=== PATIENT | male | born 1935 | race Caucasian/White ===

== ENCOUNTER 2018-10-15 14:18 | Inpatient (IN) | payer MEDICARE, OTHER, MEDICAID ==
[~2018-10-15] VITALS: Ht 177.8 cm; Wt 73.5 kg
[2018-10-15 14:25] VITALS: BP 126/66
--- NOTE | 2018-10-15 14:25 | NUR ---
ED Nurse Note: pt was brought in by ambulance from home c/o genaral body weakness started 2 weeks ago. pt felt so sleepy for the last 2 week. pt is also complaining of low blood pressure, bp upon ed arrival is 128/71. pt noted to have slow hr 47. ermd made aware. pt denies any pain, no headache. will continue to monitor
--- NOTE | 2018-10-15 14:27 | NUR ---
ED Nurse Note: iv stablished on pt right ac blood drawn and sent to lab. ivf started. will continue to monitor.
[2018-10-15] MEDS ORDERED: Sodium Chloride 2,200 ML IVLG ONE (14:30)
--- NOTE | 2018-10-15 14:30 | NUR ---
ED Nurse Note: proof technician helper on bedside.
--- NOTE | 2018-10-15 14:50 | Emergency Room Report ---
History of Present Illness General Chief Complaint: Generalized Weakness Source: Patient Present Illness HPI This patient states that this morning his roommate took his blood pressure and it was low. He does not recall the number. He has no other complaints. He denies chest pain or shortness of breath. He denies abdominal pain. He denies recent illness. He denies fever or chills. He denies lightheadedness. Denies cough or congestion. He denies headache or neck pain. He has no other complaints. Allergies: Coded Allergies: No Known Allergies (Unverified , 10/15/18) Patient History Past Medical History: see triage record, HTN, CAD, CVA/TIA Social History: Denies: smoking, alcohol use, drug use Reviewed Nursing Documentation: PMH: Agreed; PSxH: Agreed Nursing Documentation-PMH Past Medical History: No History, Except For Hx Hypertension: Yes Review of Systems All Other Systems: negative except mentioned in HPI Physical Exam Vital Signs Date Time Temp Pulse Resp B/P (MAP) Pulse Ox O2 Delivery O2 Flow Rate FiO2 10/15/18 14:16 98.1 46 16 126/66 (86) 99 Room Air Sp02 EP Interpretation: reviewed, normal General Appearance: no apparent distress, alert, GCS 15, non-toxic Head: normocephalic, atraumatic Eyes: bilateral eye normal inspection, bilateral eye PERRL ENT: hearing grossly normal, normal pharynx, no angioedema, normal voice Neck: full range of motion, supple/symm/no masses Respiratory: chest non-tender, lungs clear, normal breath sounds, no respiratory distress, no retraction, no accessory muscle use, speaking full sentences Cardiovascular #1: no edema, bradycardia Gastrointestinal: normal bowel sounds, non tender, soft, non-distended, no guarding, no rebound Rectal: deferred Musculoskeletal: back normal, gait/station normal, normal range of motion, non- tender Neurologic: alert, oriented x3, responsive, sensory intact, speech normal, grossly normal Psychiatric: judgement/insight normal, memory normal, mood/affect normal, no suicidal/homicidal ideation Medical Decision Making Diagnostic Impression: Primary Impression: Aspiration into airway ER Course This elderly male had initially presented for low blood pressure and generalized weakness. However, during his ED course he was eating a sandwich and aspirated into his airway. He had stridor that developed. He underwent deep suctioning by respiratory therapy and induced sputum to dislodge. Initially thought I may have to intubate this patient, however, he recovered. There was no evidence of a foreign body identified on CT of the neck and chest x -ray showed no new findings. As a precaution, this patient was admitted to the ICU stepdown to monitor his airway. He also may need to undergo a swallow study as he has a history of CVA and had an observed aspiration here in the emergency department. He is admitted for further evaluation and treatment. Laboratory Tests Test 10/15/18 14:25 10/15/18 15:40 White Blood Count 6.2 K/UL (4.8-10.8) Red Blood Count 4.18 M/UL (4.70-6.10) L Hemoglobin 11.8 G/DL (14.2-18.0) L Hematocrit 35.5 % (42.0-52.0) L Mean Corpuscular Volume 85 FL (80-99) Mean Corpuscular Hemoglobin 28.2 PG (27.0-31.0) Mean Corpuscular Hemoglobin Concent 33.2 G/DL (32.0-36.0) Red Cell Distribution Width 12.3 % (11.6-14.8) Platelet Count 161 K/UL (150-450) Mean Platelet Volume 6.1 FL (6.5-10.1) L Neutrophils (%) (Auto) 66.3 % (45.0-75.0) Lymphocytes (%) (Auto) 22.8 % (20.0-45.0) Monocytes (%) (Auto) 6.9 % (1.0-10.0) Eosinophils (%) (Auto) 3.4 % (0.0-3.0) H Basophils (%) (Auto) 0.6 % (0.0-2.0) Sodium Level 140 MMOL/L (136-145) Potassium Level 4.2 MMOL/L (3.5-5.1) Chloride Level 107 MMOL/L (98-107) Carbon Dioxide Level 30 MMOL/L (21-32) Anion Gap 3 mmol/L (5-15) L Blood Urea Nitrogen 24 mg/dL (7-18) H Creatinine 1.3 MG/DL (0.55-1.30) Estimate Glomerular Filtration Rate mL/min (>60) Glucose Level 83 MG/DL (74-106) Lactic Acid Level 0.80 mmol/L (0.4-2.0) Calcium Level 9.0 MG/DL (8.5-10.1) Total Bilirubin 0.6 MG/DL (0.2-1.0) Aspartate Amino Transferase (AST) 17 U/L (15-37) Alanine Aminotransferase (ALT) 13 U/L (12-78) Alkaline Phosphatase 80 U/L (46-116) Total Creatine Kinase 70 U/L (26-308) Creatine Kinase MB 0.6 NG/ML (0.0-3.6) Creatine Kinase MB Relative Index 0.8 Troponin I 0.005 ng/mL (0.000-0.056) Total Protein 6.4 G/DL (6.4-8.2) Albumin 3.8 G/DL (3.4-5.0) Globulin 2.6 g/dL Albumin/Globulin Ratio 1.5 (1.0-2.7) Urine Color Pale yellow Urine Appearance Clear Urine pH 5 (4.5-8.0) Urine Specific [place] 1.015 (1.005-1.035) Urine Protein Negative (NEGATIVE) Urine Glucose (UA) Negative (NEGATIVE) Urine Ketones Negative (NEGATIVE) Urine Blood Negative (NEGATIVE) Urine Nitrite Negative (NEGATIVE) Urine Bilirubin Negative (NEGATIVE) Urine Urobilinogen Normal MG/DL (0.0-1.0) Urine Leukocyte Esterase 1+ (NEGATIVE) H Urine RBC 0-2 /HPF (0 - 0) H Urine WBC 2-4 /HPF (0 - 0) Urine Squamous Epithelial Cells None /LPF (NONE/OCC) Urine Bacteria Few /HPF (NONE) EKG Diagnostic Results Rate: bradycardiac Rhythm: other - S.bradycardia w/ 1st degree AV block. ST Segments: no acute changes Rhythm Strip Diag. Results EP Interpretation: yes Rate: 40's Rhythm: no PVC's, no ectopy, other - S.anuj Chest X-Ray Diagnostic Results Chest X-Ray Diagnostic Results : Chest X-Ray Ordered: Yes # of Views/Limited/Complete: 1 View Indication: Shortness of Breath EP Interpretation: Yes Interpretation: no consolidation, no effusion, no pneumothorax, no acute cardiopulmonary disease Impression: No acute disease Electronically Signed by: Jenni Fields DO. CT/MRI/US Diagnostic Results CT/MRI/US Diagnostic Results : Imaging Test Ordered: CT neck Impression No acute findings. See official report in the electronic medical record. Last Vital Signs Date Time Temp Pulse Resp B/P (MAP) Pulse Ox O2 Delivery O2 Flow Rate FiO2 10/15/18 14:16 98.1 46 16 126/66 (86) 99 Room Air Disposition: ADMITTED INPATIENT Condition: Serious Referrals: NOT CHOSEN IPA/,REFERRING (PCP) Jenni Fields DO Oct 15, 2018 14:50
--- NOTE | 2018-10-15 15:10 | Diagnostic Imaging Report ---
Indication: Dyspnea Comparison: None A single view chest radiograph was obtained. Findings: Cardiomediastinal appearance is within normal limits for age. The lungs are clear. Pulmonary vascularity is appropriate. The diaphragmatic contour is smooth and costophrenic angles are sharp. No pleural effusions are identified. The bones are unremarkable. Impression: No acute findings
[2018-10-15 15:15] LABS: ANION GAP 3 mmol/L (5-15); BASOPHILS % (AUTO) 0.6 % (0.0-2.0); BLOOD UREA NITROGEN 24 mg/dL (7-18); CARBON DIOXIDE 30 MMOL/L (21-32); CHLORIDE 107 MMOL/L (98-107); CREATININE 1.3 MG/DL (0.55-1.30); EOSINOPHILS % (AUTO) 3.4 % (0.0-3.0); HEMATOCRIT 35.5 % (42.0-52.0); HEMOGLOBIN 11.8 G/DL (14.2-18.0); LYMPHOCYTES % (AUTO) 22.8 % (20.0-45.0); MEAN CORPUSCULAR VOLUME 85 FL (80-99); MONOCYTES % (AUTO) 6.9 % (1.0-10.0); NEUTROPHILS % (AUTO) 66.3 % (45.0-75.0); PLATELET COUNT 161 K/UL (150-450); POTASSIUM 4.2 MMOL/L (3.5-5.1); RED BLOOD COUNT 4.18 M/UL (4.70-6.10); RED CELL DISTRIBUTION WIDTH 12.3 % (11.6-14.8); SODIUM 140 MMOL/L (136-145); WHITE BLOOD COUNT 6.2 K/UL (4.8-10.8)
--- NOTE | 2018-10-15 15:20 | NUR ---
ED Nurse Note: pt unable to give urine sample upto now. ermd made aware,. will continue to monitor.
[2018-10-15 15:28] LABS: ALANINE AMINOTRANSFERASE 13 U/L (12-78); ALBUMIN 3.8 G/DL (3.4-5.0); ALBUMIN/GLOBULIN RATIO 1.5 (1.0-2.7); ALKALINE PHOSPHATASE 80 U/L (46-116); ASPARTATE AMINO TRANSFERASE 17 U/L (15-37); BILIRUBIN,TOTAL 0.6 MG/DL (0.2-1.0); CKMB 0.6 NG/ML (0.0-3.6); CREATINE KINASE 70 U/L (26-308)
[2018-10-15 15:52] VITALS: BP 149/63
[2018-10-15 16:14] LABS: APPEARANCE,URINE CLEAR; BILIRUBIN, URINE NEGATIVE (NEGATIVE); GLUCOSE, URINE (UA) NEGATIVE (NEGATIVE); KETONES,URINE NEGATIVE (NEGATIVE); LEUKOCYTE ESTERASE ,URINE 1+ (NEGATIVE); NITRITE,URINE NEGATIVE (NEGATIVE); PH,URINE 5 (4.5-8.0); PROTEIN,URINE NEGATIVE (NEGATIVE); UROBILINOGEN,URINE NORMAL MG/DL (0.0-1.0)
[2018-10-15 16:16] LABS: COLOR,URINE PALE YELLOW
--- NOTE | 2018-10-15 16:20 | NUR ---
ED Nurse Note: pt asked for sandwich, ermd made aware, chicken sandwich wa given to pt, pt is sitting on the bed, pt room mate on bedside.
[2018-10-15] MEDS ORDERED: Isovue-300 100ml vial INJ PRN (16:30)
--- NOTE | 2018-10-15 16:30 | NUR ---
ED Nurse Note: pt noticed to be coughing, ermd made aware.
--- NOTE | 2018-10-15 16:54 | NUR ---
ED Nurse Note: pt was went to ct with tech
--- NOTE | 2018-10-15 17:15 | NUR ---
ED Nurse Note: pt reassessed and stated she feel better now, vs within normal limit.
[2018-10-15 17:16] VITALS: BP 135/116
--- NOTE | 2018-10-15 17:25 | NUR ---
ED Nurse Note: [phone] flaca bae, pt room mate left his number and want to be notified for the room number. pt is aware and allowed the roommate to know his room number.
[2018-10-15] MEDS ORDERED: UNOBMED (17:46)
--- NOTE | 2018-10-15 17:46 | NUR ---
ED Nurse Note: pt does not remember the name of meds. roomate will bring the list.
--- NOTE | 2018-10-15 17:58 | Diagnostic Imaging Report ---
EXAM: CT Neck Without Intravenous Contrast CLINICAL HISTORY: Patient choked on a piece of sandwich, and now has stridor. Rule out foreign body in upper airway TECHNIQUE: Axial computed tomography images of the neck without intravenous contrast. CTDI is 19.46 mGy and DLP is 641 mGy-cm. One or more of the following dose reduction techniques were used: automated exposure control, adjustment of the mA and/or kV according to patient size, use of iterative reconstruction technique. COMPARISON: Chest x-ray of same day FINDINGS: Oropharynx: Unremarkable. No significant tonsillar enlargement. Hypopharynx: Unremarkable. Larynx: Unremarkable. Normal epiglottis. Trachea: Unremarkable. Retropharyngeal space: Unremarkable. Submandibular/parotid glands: Unremarkable. Glands are normal in size. Thyroid: Unremarkable. No enlarged or calcified nodules. Bones/joints: No acute fracture. Soft tissues: There is no filling defect in the airway suggestive of a foreign body from the oral cavity through the bilateral proximal mainstem bronchi. Vasculature: There is incidental dense calcification of the bilateral carotid bifurcations and proximal internal carotid arteries than on the right may be flow-limiting. Lymph nodes: Unremarkable. No lymphadenopathy. Lung apices: Unremarkable as visualized. IMPRESSION: 1. There is no filling defect in the airway suggestive of a foreign body from the oral cavity through the bilateral proximal mainstem bronchi. 2. There is incidental dense calcification of the bilateral carotid bifurcations and proximal internal carotid arteries than on the right may be flow-limiting. Correlation with elective carotid ultrasound could be beneficial.
--- NOTE | 2018-10-15 18:43 | Diagnostic Imaging Report ---
EXAM: XR Chest, 1 View CLINICAL HISTORY: SOB TECHNIQUE: Frontal view of the chest. COMPARISON: The same day chest x-ray time stamped at 1455 hrs. FINDINGS: Lungs: Slight interval increase in linear densities at the lung bases and right infrahilar region are noted. Pleural space: Unremarkable. No pneumothorax. Heart: Unremarkable. No cardiomegaly. Mediastinum: Unremarkable. Bones/joints: Stable hardware fixation of comminuted proximal left humeral fracture. IMPRESSION: Hypoventilatory changes with increased density in the right infrahilar region that could reflect pneumonitis in the appropriate clinical context.
--- NOTE | 2018-10-15 18:52 | NUR ---
ED Nurse Note: attempted to give report to nurse of [id number], charge nurse stated to call back in 10 minutes
--- NOTE | 2018-10-15 19:05 | NUR ---
ED Nurse Note: report was given to luis vasquez, pt transfered to room 237. all belongings endorsed to luis vasquez.
--- NOTE | 2018-10-15 19:05 | NUR ---
NURSE NOTES: Pt report received from [facility]. awaiting Pt to Arrive from ER Unit.
[2018-10-15 20:00] VITALS: BP 144/55
[2018-10-15] MEDS ORDERED: Mylanta II UD 30ml ORAL PRN (20:00)
--- NOTE | 2018-10-15 20:45 | History and Physical Report ---
DATE OF ADMISSION: 10/15/2018 REASON FOR ADMISSION: Aspiration. HISTORY OF PRESENT ILLNESS: The patient is a pleasant 83-year-old gentleman who was sent to the emergency room after being found hypotensive. Upon presentation to the emergency room, the patient's blood pressure was stable, however, during his stay in the emergency room, the patient was eating a sandwich and this aspirated, which required respiratory therapy for suctioning, deep in nature, and as such he was admitted for observation to ensure that there were no respiratory or cardiac issues. The patient denies any current nausea, vomiting, diarrhea. No chest pain and no shortness of breath. The patient does have his caregiver at bedside. ALLERGIES: No known drug allergies. PAST MEDICAL HISTORY: 1. Hypertension. 2. CAD. 3. CVA. 4. TIA. SOCIAL HISTORY: No tobacco, alcohol, or illicit drug use. FAMILY HISTORY: Positive for hypertension. PAST SURGICAL HISTORY: Noncontributory. REVIEW OF SYSTEMS: NEUROLOGIC: The patient denies headache, change in vision, syncope, or presyncopal episodes. CARDIOVASCULAR: No current chest pain, palpitations, or angina. PULMONARY: The patient did aspirate on a sandwich and was short of breath. GASTROINTESTINAL/GENITOURINARY: No change in urinary or bowel habits. No nausea, vomiting, or diarrhea. ENDOCRINOLOGY: No night sweats, fevers, or chills. LABORATORY DATA: Laboratories dated October 15, 2018, sodium 140, potassium 4.2, creatinine 1.3. Hemoglobin 11.8, white cell count 6.2, and platelet count 161,000. PHYSICAL EXAMINATION: VITAL SIGNS: Blood pressure 135/116, 97% oxygen saturation on room air, respiratory rate 26, pulse 71, temperature 98.1. GENERAL: The patient is awake, alert, in no distress. HEENT: Extraocular muscles intact. No lymphadenopathy noted. CARDIOVASCULAR: S1, S2. No rubs or gallops. PULMONARY: Clear to auscultation bilaterally. No rales, rhonchi, or wheeze. ABDOMEN: Nondistended and nontender. EXTREMITIES: No edema. ASSESSMENT AND PLAN: 1. Aspiration secondary to food intake, specifically sandwich, status post deep suctioning. The patient is currently stable, admitted for airway protection and evaluation overnight. Speech evaluation at bedside has been ordered. If the patient is stable overnight and passes his speech evaluation, he will be discharged in the morning. 2. Hypertension. We will adjust medications as deemed appropriate during hospitalization. 3. Previous CVA. Continue aspirin, statin, and beta-sola. 4. DVT prophylaxis with SCDs. The patient will be discharged tomorrow if he remains stable and passes speech study test. Jonathantracy Mead MD DR: [place] JOB#: [id number] CC:
[2018-10-15] MEDS ORDERED: Atorvastatin 20mg tab ORAL SCH (21:00)
[2018-10-15] MEDS ORDERED: Latanoprost 0.005% Opth 2.5ml Soln BOTH EYES SCH (21:00)
[2018-10-15] MEDS: Metoprolol Tartrate 12.5mg TAB ORAL SCH (21:23)
[2018-10-15] MEDS ORDERED: Brimonidine 0.2% Opth Sol BOTH EYES SCH (21:30)
[2018-10-16] VITALS: BP 146/68
[2018-10-16 04:00] VITALS: BP 158/81
[2018-10-16 05:50] LABS: BASOPHILS % (AUTO) 0.6 % (0.0-2.0); EOSINOPHILS % (AUTO) 3.6 % (0.0-3.0); HEMATOCRIT 37.2 % (42.0-52.0); HEMOGLOBIN 12.5 G/DL (14.2-18.0); LYMPHOCYTES % (AUTO) 19.7 % (20.0-45.0); MEAN CORPUSCULAR VOLUME 84 FL (80-99); MONOCYTES % (AUTO) 5.5 % (1.0-10.0); NEUTROPHILS % (AUTO) 70.7 % (45.0-75.0); PLATELET COUNT 173 K/UL (150-450); RED CELL DISTRIBUTION WIDTH 12.6 % (11.6-14.8); WHITE BLOOD COUNT 6.7 K/UL (4.8-10.8)
[2018-10-16 06:06] LABS: ANION GAP 9 mmol/L (5-15); BLOOD UREA NITROGEN 17 mg/dL (7-18); CARBON DIOXIDE 25 MMOL/L (21-32); CHLORIDE 111 MMOL/L (98-107); CREATININE 1.1 MG/DL (0.55-1.30); POTASSIUM 4.1 MMOL/L (3.5-5.1); SODIUM 145 MMOL/L (136-145)
--- NOTE | 2018-10-16 07:19 | NUR ---
HAND-OFF: Report given to dOalys Miller
--- NOTE | 2018-10-16 07:20 | NUR ---
NURSE NOTES: Report received from Robin Jones RN.Pt in bed awake,alert eating breakfast,in no distress denies any c/o pain or discomfort,no aspiration noted,ate breakfast with appetite,100% from the tray,Dr Mead at bedside,saw pt eating with out aspiration,discussed with pt and healthcare architect re discharge plans for home.
--- NOTE | 2018-10-16 07:52 | Nephrology Progress Note ---
Assessment/Plan Assessment/Plan: A/P 1) Hypotension- isolated event. Here at hospital BP stable - OK for DC, labs stable 2) Aspiration- patient aspirated on sandwich in ER. Isolated event. No further events - has eaten here well. No bedside eswallow eval available over weekend, but with no previous history iof aspiration and having eaten all meals, OK for DC Patient stable, in good condition for DC Subjective Date patient seen: Oct 16, 2018 Time patient seen: 07:45 ROS Limited/Unobtainable: No Allergies: Coded Allergies: No Known Allergies (Unverified , 10/15/18) Subjective Patient doing well. Eating well. DC today Objective Last 24 Hour Vital Signs Date Time Temp Pulse Resp B/P (MAP) Pulse Ox O2 Delivery O2 Flow Rate FiO2 10/16/18 04:01 52 10/16/18 04:00 Room Air 10/16/18 04:00 98.2 59 19 158/81 (106) 99 10/16/18 00:00 98.4 60 19 146/68 (94) 99 10/16/18 00:00 Room Air 10/15/18 23:40 54 10/15/18 21:23 83 144/55 10/15/18 21:19 Room Air 10/15/18 21:00 55 10/15/18 20:00 98.3 61 19 144/55 (84) 99 10/15/18 20:00 Room Air 10/15/18 20:00 Room Air 10/15/18 19:05 98.1 71 26 135/116 97 Room Air 10/15/18 17:16 71 26 135/116 97 10/15/18 15:52 49 20 149/63 100 Room Air 10/15/18 14:25 98.1 47 16 126/66 99 Room Air 10/15/18 14:25 47 16 Room Air 10/15/18 14:16 98.1 46 16 126/66 (86) 99 Room Air Intake and Output 10/15/18 10/16/18 19:00 07:00 Intake Total 2200 ml 2800 ml Balance 2200 ml 2800 ml Intake IV Total 2200 ml 2800 ml # Voids 1 # Bowel Movements 1 Laboratory Tests 10/15/18 14:25: White Blood Count 6.2, Red Blood Count 4.18L, Hemoglobin 11.8L, Hematocrit 35.5L , Mean Corpuscular Volume 85, Mean Corpuscular Hemoglobin 28.2, Mean Corpuscular Hemoglobin Concent 33.2, Red Cell Distribution Width 12.3, Platelet Count 161, Mean Platelet Volume 6.1L, Neutrophils (%) (Auto) 66.3, Lymphocytes ( %) (Auto) 22.8, Monocytes (%) (Auto) 6.9, Eosinophils (%) (Auto) 3.4H, Basophils (%) (Auto) 0.6, Sodium Level 140, Potassium Level 4.2, Chloride Level 107, Carbon Dioxide Level 30, Anion Gap 3L, Blood Urea Nitrogen 24H, Creatinine 1.3, Estimat Glomerular Filtration Rate , Glucose Level 83, Lactic Acid Level 0.80, Calcium Level 9.0, Total Bilirubin 0.6, Aspartate Amino Transf (AST/SGOT) 17, Alanine Aminotransferase (ALT/SGPT) 13, Alkaline Phosphatase 80, Total Creatine Kinase 70, Creatine Kinase MB 0.6, Creatine Kinase MB Relative Index 0.8, Troponin I 0.005, Total Protein 6.4, Albumin 3.8, Globulin 2.6, Albumin/ Globulin Ratio 1.5 10/15/18 15:40: Urine Color Pale yellow, Urine Appearance Clear, Urine pH 5, Urine Specific [place] 1.015, Urine Protein Negative, Urine Glucose (UA) Negative, Urine Ketones Negative, Urine Blood Negative, Urine Nitrite Negative, Urine Bilirubin Negative, Urine Urobilinogen Normal, Urine Leukocyte Esterase 1+H, Urine RBC 0- 2H, Urine WBC 2-4, Urine Squamous Epithelial Cells None, Urine Bacteria Few 10/16/18 04:00: White Blood Count 6.7, Red Blood Count 4.40L, Hemoglobin 12.5L, Hematocrit 37.2L , Mean Corpuscular Volume 84, Mean Corpuscular Hemoglobin 28.5, Mean Corpuscular Hemoglobin Concent 33.7, Red Cell Distribution Width 12.6, Platelet Count 173, Mean Platelet Volume 5.9L, Neutrophils (%) (Auto) 70.7, Lymphocytes ( %) (Auto) 19.7L, Monocytes (%) (Auto) 5.5, Eosinophils (%) (Auto) 3.6H, Basophils (%) (Auto) 0.6, Sodium Level 145, Potassium Level 4.1, Chloride Level 111H, Carbon Dioxide Level 25, Anion Gap 9, Blood Urea Nitrogen 17, Creatinine 1.1, Estimat Glomerular Filtration Rate , Glucose Level 117H, Calcium Level 9.0 , Troponin I 0.012 Height (Feet): 5 Height (Inches): 10.00 Weight (Pounds): 162 General Appearance: no apparent distress, alert EENT: normal ENT inspection Neck: normal alignment, supple Cardiovascular: normal rate, regular rhythm Respiratory/Chest: lungs clear, normal breath sounds Abdomen: non tender, soft Edema: no edema noted Arm (L), no edema noted Arm (R), no edema noted Leg (L), no edema noted Leg (R), no edema noted Pedal (L), no edema noted Pedal (R), no edema noted Generalized Jonathan Mead MD Oct 16, 2018 07:52
--- NOTE | 2018-10-16 07:54 | Discharge Instructions ---
Discharge Instructions Discharge Instructions Services at Discharge: day care Diet: 2 GM sodium (low sodium) Follow Up Orders Follow up with PCP 1 week Has home health arranged already Continue home medications, no changes For Congestive Heart Failure Reminder Report to your physician any weight gain of 5 pounds or more in one week. Jonathan Mead MD Oct 16, 2018 07:54
[2018-10-16 08:00] VITALS: BP 153/76
[2018-10-16 08:31] VITALS: BP 153/76
[2018-10-16] MEDS: Metoprolol Tartrate 12.5mg TAB ORAL SCH (08:31)
[2018-10-16] MEDS ORDERED: Allopurinol 100mg Tab ORAL SCH (09:00)
[2018-10-16] MEDS ORDERED: Aspirin Baby 81mg ORAL SCH (09:00)
--- NOTE | 2018-10-16 09:00 | NUR ---
NURSE NOTES: Pt discharged and out of the unit per WC awake,alert oriented in no acute distress ,denies any c/o pain ,accompanied by clinical care manager and room mate.IV removed by RN Sun Soni.Pt's eye medic Alphagan dawson not given since it was not available from Pharmacy and pt wanted to be discharge right away.Caregiver will give it at home.
[2018-10-16] MEDS ORDERED: Tubing IV Secondary IV ONE (09:19)
[2018-10-16] MEDS ORDERED: 1/2 NS 1000ml IV ONE (09:19)
--- NOTE | 2018-10-18 09:09 | Discharge Summary ---
Discharge Summary Discharge Summary _ DATE OF ADMISSION: 10/15/2018 DATE OF DISCHARGE: 10/16/2018 DISCHARGED BY: Dr.De Corrales REASON FOR ADMISSION: 83 years old male with past medical history of hypertension, coronary artery disease, CVA/TIA, presented to emergency department after he was found to be hypotensive by caregiver. Upon presentation blood pressure was stable . However during the stay in the emergency department patient was eating sandwich and aspirated , which required respiratory therapist for deep suctioning Patient subsequently was admitted for observation to ensure that there was no respiratory or cardiac issues. Patient denied nausea , vomiting, diarrhea. No chest pain or shortness of breath. Caregiver at the bedside. Laboratory work-up revealed no leukocytosis ,hemoglobin 11.8, hematocrit 35.5. Stable electrolytes. BUN 24 creatinine 1.3 . Troponin negative . EKG revealed normal sinus rhythm, no acute ischemic changes. Stable LFT . Albumin 3.8. Urinalysis revealed no evidence of urinary tract infection. Chest x-ray revealed no acute findings. HOSPITAL COURSE: Patient admitted to direct observational unit. Hemodynamic status was closely monitored. Blood pressure remained stable. Pulse oximetry was stable on room air. Patient followed-up with a chest x-ray. Patient was on IV hydration. With IV hydration BUN from 24 down to 17 and creatinine from 1.3 down to 1.1. Home medication were resumed. Blood pressure was managed with calcium channel sola and beta-sola. Antiplatelet therapy with aspirin and statin were continued. Patient was closely observed and was able to tolerate his diet. Patient remained afebrile. No bedside swallow evaluation was available over the weekend. Patient had no prior history of aspiration or difficulty swallowing. Patient was able to eat all his meals without difficulties. Patient was cleared for discharge home with caregiver. Due to rapid and unexpected improvement patient condition patient was discharged in 1 day. FINAL DIAGNOSES: Hypotension, isolated event,- resolved Aspiration secondary to food intake, isolated event, no recurrence History of CVA Hypertension DISCHARGE MEDICATIONS: See Medication Reconciliation list. DISCHARGE INSTRUCTIONS: Patient was discharged home . Follow up with primary care provider in one week. I have been assigned to dictate discharge summary for this account. I was not involved in the patient's management. Leonora Ambriz NP Oct 18, 2018 09:09
== END 2018-10-16 09:20 | disposition home or self-care (01) | DRG 206 ==
LOC: EDBD 14:18 → EMR 14:29 → 2W 17:20 → EDBEDREQ 17:36 → EDBEDREQSVC 18:03 → EDBEDREQ 18:10
DX: T17.828A Food in other parts of respiratory tract causing other injury, initial encounter (principal); I95.9 Hypotension, unspecified; R06.1 Stridor; Z86.73 Personal history of transient ischemic attack (TIA), and cerebral infarction without residual deficits; I10 Essential (primary) hypertension; I25.10 Atherosclerotic heart disease of native coronary artery without angina pectoris; X58.XXXA Exposure to other specified factors, initial encounter; Y92.238 Other place in hospital as the place of occurrence of the external cause
CPT/HCPCS: 36415; 70491; 71045; 80048; 80053; 81003; 82550; 82553; 83605; 84484; 85025; 87040; 93005; 96360; 99285